=== PATIENT | male | born 1940 | race Caucasian/White ===

== ENCOUNTER → 2020-10-31 | Outpatient (CLI) | payer OTHER ==
[~2020-10-31] MED LIST: ALBUTEROL0.63 MG/3 INH; ALBUTEROL2.5 MG/3 M INH; ATORVASTATIN CA80 MG PO; CARBIDOPA-LEVO1 EA14 PO; CARDURA 2MG TAB2 MG PO; CATAPRES 0.1MG0.1 MG PO; CLOPIDOGREL75 MG PO; DILTIAZEM 24HR120 M1 PO; DILTIAZEM 24HR180 M1 PO; DILTIAZEM 24HR240 M1 PO; DOXYCYCLINE HY100 M2 PO; ECOTRIN81 MG PO; GABAPENTIN600 MG PO; GLUCOPHAGE500 MG PO; HIGH POTENCY I134 MG PO; HYDRALAZINE HCL50 MG PO; HYDROCHLOROTHIA25 MG PO; HYGROTON TAB 2525 MG PO; IMDUR ER TAB 3030 MG PO; K-DUR TAB 10 M10 MEQ PO; LASIX20 MG PO; NORCO 10-325 T1 EACH PO; POTASSIUM CHLO10 ME1 PO; PROTONIX40 MG PO; SLOW RELEASE I142 MG PO; SYNTHROID100 MCG PO; ZESTRIL40 MG PO; ZYLOPRIM 300 M300 MG PO
== END ==
LOC: KOH-I 13:30
DX: D64.9 Anemia, unspecified (principal); K90.9 Intestinal malabsorption, unspecified; D50.8 Other iron deficiency anemias; R59.9 Enlarged lymph nodes, unspecified; R93.5 Abnormal findings on diagnostic imaging of other abdominal regions, including retroperitoneum
CPT/HCPCS: 74150

== ENCOUNTER 2020-11-20 03:31 | Emergency (ER) | payer OTHER ==
[~2020-11-20 03:31] MED LIST changes: -DOXYCYCLINE HY100 M2 PO; -HIGH POTENCY I134 MG PO; -LASIX20 MG PO
[2020-11-20 04:12] LABS: HEMOGLOBIN 9.4 gm/dl (14.0-17.5); RED BLOOD COUNT 3.2 M/UL (4.20-5.50); WHITE BLOOD COUNT 5.4 K/UL (4.5-11.0)
[2020-11-20 09:04] LABS: BUN/CREATININE RATIO 19 (0-10)
== END 2020-11-20 09:23 | disposition home or self-care (01) ==
LOC: ER1 03:31
PROVIDERS: Emergency Medicine
DX: R07.9 Chest pain, unspecified (principal); E11.9 Type 2 diabetes mellitus without complications; I10 Essential (primary) hypertension; I48.91 Unspecified atrial fibrillation; J44.9 Chronic obstructive pulmonary disease, unspecified; Z91.041 Radiographic dye allergy status; Z88.8 Allergy status to other drugs, medicaments and biological substances; Z53.20 Procedure and treatment not carried out because of patient's decision for unspecified reasons
CPT/HCPCS: 71045; 80053; 81001; 82550; 82553; 83874; 84484; 85025; 85379; 85610; 85730; 93005; 99285

== ENCOUNTER 2021-02-04 14:32 | Inpatient (IN) | payer OTHER ==
[~2021-02-04] VITALS: Ht 177.8 cm; Wt 85.8 kg
[2021-02-04 16:19] LABS: RED BLOOD COUNT 2.28 M/UL (4.20-5.50); WHITE BLOOD COUNT 6.4 K/UL (4.5-11.0)
[2021-02-04 16:25] LABS: HEMOGLOBIN 6.6 gm/dl (14.0-17.5)
[2021-02-05 06:06] LABS: HEMOGLOBIN 8.4 gm/dl (14.0-17.5)
[2021-02-05 06:08] LABS: RED BLOOD COUNT 2.9 M/UL (4.20-5.50); WHITE BLOOD COUNT 4.2 K/UL (4.5-11.0)
[2021-02-06 03:06] LABS: HEMOGLOBIN 8.4 gm/dl (14.0-17.5); RED BLOOD COUNT 2.93 M/UL (4.20-5.50)
[2021-02-06 03:25] LABS: WHITE BLOOD COUNT 8.5 K/UL (4.5-11.0)
[2021-02-06 08:55] LABS: BUN/CREATININE RATIO 23 (0-10)
[2021-02-07 03:38] LABS: HEMOGLOBIN 8.6 gm/dl (14.0-17.5); RED BLOOD COUNT 3.05 M/UL (4.20-5.50)
[2021-02-07 03:44] LABS: WHITE BLOOD COUNT 5.7 K/UL (4.5-11.0)
[2021-02-07 04:20] LABS: BUN/CREATININE RATIO 17 (0-10)
[2021-02-08 08:02] LABS: HEMOGLOBIN 9.3 gm/dl (14.0-17.5); RED BLOOD COUNT 3.26 M/UL (4.20-5.50); WHITE BLOOD COUNT 6.1 K/UL (4.5-11.0)
[2021-02-08 08:23] LABS: BUN/CREATININE RATIO 14 (0-10)
[2021-02-08] MEDS ORDERED: DOXYCYCLINE HY100 M2 PO (12:09)
[2021-02-08] MEDS ORDERED: LASIX20 MG PO (12:09)
[2021-02-08] MEDS ORDERED: HIGH POTENCY I134 MG PO (12:09)
[2021-02-10 15:11] LABS: A/G RATIO 1.1 (0.7-1.7); ALBUMIN 3.4 g/dL (2.9-4.4); ALPHA-1-GLOBULIN 0.5 g/dL (0.0-0.4); ALPHA-2-GLOBULIN 1.1 g/dL (0.4-1.0); BETA GLOBULIN 0.7 g/dL (0.7-1.3); GAMMA GLOBULIN 0.9 g/dL (0.4-1.8); GLOBULIN, TOTAL 3.2 g/dL (2.2-3.9); IMMUNOGLOBULIN A, QN, SERUM 84 mg/dL (61-437); IMMUNOGLOBULIN G, QN, SERUM 509 mg/dL (603-1613); IMMUNOGLOBULIN M, QN, SERUM 416 mg/dL (15-143); M-SPIKE 0.3 g/dL (Not Observed); PROTEIN, TOTAL, SERUM 6.6 g/dL (6.0-8.5)
== END 2021-02-08 13:01 | disposition home or self-care (01) | DRG 871 ==
LOC: ER1 14:32 → CDU 17:11 → M/S 17:11
PROVIDERS: Emergency Medicine; Internal Medicine; Internal Medicine Gastroenterology; Registered Nurse; ADMIT Internal Medicine
PROC: 30233N1 Transfusion of Nonautologous Red Blood Cells into Peripheral Vein, Percutaneous Approach (ICD-10-PCS; principal; 2021-02-04)
PROC: 0DJ08ZZ Inspection of Upper Intestinal Tract, Via Natural or Artificial Opening Endoscopic (ICD-10-PCS; 2021-02-07 12:00)
DX: A41.9 Sepsis, unspecified organism (principal); J18.9 Pneumonia, unspecified organism; I50.33 Acute on chronic diastolic (congestive) heart failure; J96.01 Acute respiratory failure with hypoxia; J44.0 Chronic obstructive pulmonary disease with (acute) lower respiratory infection; I13.0 Hypertensive heart and chronic kidney disease with heart failure and stage 1 through stage 4 chronic kidney disease, or unspecified chronic kidney disease; D50.9 Iron deficiency anemia, unspecified; R59.1 Generalized enlarged lymph nodes; E78.5 Hyperlipidemia, unspecified; I25.10 Atherosclerotic heart disease of native coronary artery without angina pectoris; G20 Parkinson's disease; Z99.81 Dependence on supplemental oxygen; Z87.891 Personal history of nicotine dependence; Z95.5 Presence of coronary angioplasty implant and graft; K59.09 Other constipation; N18.30 Chronic kidney disease, stage 3 unspecified; E11.22 Type 2 diabetes mellitus with diabetic chronic kidney disease; D63.1 Anemia in chronic kidney disease; Z20.822 Contact with and (suspected) exposure to COVID-19
CPT/HCPCS: ECHO; 36415; 36430; 36600; 70450; 71045; 80048; 80053; 82140; 82272; 82550; 82553; 82784; 82803; 82962; 83540; 83550; 83605; 83690; 83735; 83874; 83880; 83883; 84100; 84155; 84165; 84439; 84443; 84484; 85025; 85027; 85610; 85730; 86140; 86334; 86738; 86850; 86900; 86901; 86920; 87040; 93005; 93306; 94640; 94664; 94760; 96374; 96375; 99285; C9113; J0456; J0696; J1756; J1940; J2704; J2930; J3480; J7030; J7050; J7070; P9016; U0002

== ENCOUNTER 2021-05-02 15:36 | Emergency (ER) | payer OTHER ==
[~2021-05-02 15:36] MED LIST changes: +DOXYCYCLINE HY100 M2 PO; +HIGH POTENCY I134 MG PO; +LASIX20 MG PO
[2021-05-02 16:25] LABS: HEMOGLOBIN 10.4 gm/dl (14.0-17.5); RED BLOOD COUNT 3.43 M/UL (4.20-5.50); WHITE BLOOD COUNT 5.3 K/UL (4.5-11.0)
== END 2021-05-02 19:10 | disposition home or self-care (01) ==
LOC: ER1 15:36
PROVIDERS: Physician Assistant Medical
DX: I13.0 Hypertensive heart and chronic kidney disease with heart failure and stage 1 through stage 4 chronic kidney disease, or unspecified chronic kidney disease (principal); I50.9 Heart failure, unspecified; J44.9 Chronic obstructive pulmonary disease, unspecified; N18.9 Chronic kidney disease, unspecified; Z91.041 Radiographic dye allergy status
CPT/HCPCS: 71045; 80053; 82550; 82553; 83874; 83880; 84439; 84443; 84484; 85025; 85610; 93005; 96374; 99285

== ENCOUNTER → 2021-05-21 | Outpatient (CLI) | payer OTHER | LOC: HEART 5 11:00 | DX: I48.91 Unspecified atrial fibrillation (principal) ==

== ENCOUNTER → 2021-06-11 | Outpatient (CLI) | payer OTHER | LOC: CT 08:07 | DX: K90.9 Intestinal malabsorption, unspecified (principal); D50.8 Other iron deficiency anemias; N18.9 Chronic kidney disease, unspecified; D63.1 Anemia in chronic kidney disease; R59.0 Localized enlarged lymph nodes; J90 Pleural effusion, not elsewhere classified; D35.01 Benign neoplasm of right adrenal gland | CPT/HCPCS: 71250 ==

== ENCOUNTER → 2021-08-13 | Outpatient (CLI) | payer OTHER | LOC: EXRD 14:11 | DX: R09.89 Other specified symptoms and signs involving the circulatory and respiratory systems (principal) | CPT/HCPCS: 93880 ==

== ENCOUNTER → 2021-08-13 | Outpatient (CLI) | payer OTHER ==
[2021-08-13 12:36] LABS: HEMOGLOBIN 8.7 gm/dl (14.0-17.5); RED BLOOD COUNT 3.09 M/UL (4.20-5.50)
== END ==
LOC: LAB 12:02
PROVIDERS: Internal Medicine Cardiovascular Disease
DX: I48.92 Unspecified atrial flutter (principal); I10 Essential (primary) hypertension
CPT/HCPCS: 36415; 71046; 80048; 85025

== ENCOUNTER → 2021-09-23 | Outpatient (CLI) | payer OTHER ==
[~2021-09-23] MED LIST changes: +ALLOPURINOL300 MG PO; +ATORVASTATIN CA40 MG PO; +CARBIDOPA-LEVO1 EAC3 PO; +CEPHALEXIN500 M1 PO; +CLARITIN10 M2 PO; +CLONIDINE HCL0.3 MG PO; +DILTIAZEM 12HR120 MG PO; +DOXAZOSIN MESYLA2 MG PO; +ELIQUIS5 MG PO; +HYDRALAZINE HC100 MG PO; +HYDROCODON-ACE1 EAC6 PO; +IRON INFUSIONS IV; +ISOSORBIDE MONO30 MG PO; +JANUVIA50 MG PO; +LEVOTHYROXINE100 MC2 PO; +LOSARTAN POTASS25 MG PO; +METFORMIN HCL500 MG PO; +NITROSTAT0.4 MG SL; +PANTOPRAZOLE SO20 MG PO; +PLAVIX75 MG PO; +POTASSIUM CHLO20 ME1 PO; +PROVENTIL HFA6.7 GM INH; +VITAMIN C 500500 MG PO
== END ==
LOC: CT 09-15 13:00
DX: I65.23 Occlusion and stenosis of bilateral carotid arteries (principal); R09.89 Other specified symptoms and signs involving the circulatory and respiratory systems; R55 Syncope and collapse; J90 Pleural effusion, not elsewhere classified; I25.10 Atherosclerotic heart disease of native coronary artery without angina pectoris
CPT/HCPCS: 70498; Q9967

== ENCOUNTER → 2021-10-01 | Outpatient (CLI) | payer OTHER | LOC: HEART 5 15:00 | DX: R60.0 Localized edema (principal); M54.50 Low back pain, unspecified ==

== ENCOUNTER 2021-10-28 17:26 | Inpatient (IN) | payer OTHER ==
[~2021-10-28] VITALS: Ht 172.7 cm; Wt 85.7 kg
[~2021-10-28 17:26] MED LIST changes: -CARBIDOPA-LEVO1 EAC3 PO
[2021-10-28 19:20] LABS: WHITE BLOOD COUNT 5.8 K/UL (4.5-11.0)
[2021-10-29] MEDS ORDERED: LONITEN TAB 1010 MG PO (03:41)
[2021-10-29] MEDS ORDERED: CARBIDOPA-LEVO1 EA14 PO (11:07)
[2021-10-30 07:17] LABS: HEMOGLOBIN 7.6 gm/dl (14.0-17.5); RED BLOOD COUNT 2.85 M/UL (4.20-5.50)
[2021-10-30 07:36] LABS: WHITE BLOOD COUNT 4.3 K/UL (4.5-11.0)
[2021-11-01 04:22] LABS: HEMOGLOBIN 7.2 gm/dl (14.0-17.5); RED BLOOD COUNT 2.76 M/UL (4.20-5.50)
[2021-11-01 04:33] LABS: WHITE BLOOD COUNT 5.6 K/UL (4.5-11.0)
[2021-11-02 03:26] LABS: HEMOGLOBIN 7.3 gm/dl (14.0-17.5); RED BLOOD COUNT 2.89 M/UL (4.20-5.50); WHITE BLOOD COUNT 4.5 K/UL (4.5-11.0)
[2021-11-03 04:24] LABS: RED BLOOD COUNT 2.77 M/UL (4.20-5.50); WHITE BLOOD COUNT 5.1 K/UL (4.5-11.0)
[2021-11-04 04:49] LABS: HEMOGLOBIN 7.1 gm/dl (14.0-17.5); RED BLOOD COUNT 2.68 M/UL (4.20-5.50); WHITE BLOOD COUNT 4.6 K/UL (4.5-11.0)
[2021-11-05 03:56] LABS: HEMOGLOBIN 7.4 gm/dl (14.0-17.5); RED BLOOD COUNT 2.8 M/UL (4.20-5.50); WHITE BLOOD COUNT 4.4 K/UL (4.5-11.0)
[2021-11-06 04:42] LABS: RED BLOOD COUNT 2.71 M/UL (4.20-5.50); WHITE BLOOD COUNT 4.6 K/UL (4.5-11.0)
[2021-11-06 04:47] LABS: HEMOGLOBIN 6.8 gm/dl (14.0-17.5)
[2021-11-06 09:13] LABS: CREATININE, URINE 59.6 mg/dL (Not Estab.)
[2021-11-06] MEDS ORDERED: ALDACTONE 25MG25 MG PO (13:58)
[2021-11-06] MEDS ORDERED: CEFUROXIME500 MG PO (14:18)
[2021-11-06 15:34] LABS: HEMOGLOBIN 8.9 gm/dl (14.0-17.5)
== END 2021-11-06 17:27 | disposition home or self-care (01) | DRG 193 ==
LOC: ER1 17:26 → MED SURG 4 10-29 02:58 → CDU 10-29 02:58 → PROG CARE 10-29 02:58 → 3 EAST 10-29 13:18 → MED SURG 4 10-29 19:05 → PROG CARE 10-31 19:58
PROVIDERS: Internal Medicine; Physician Assistant; Registered Nurse; ADMIT Internal Medicine
PROC: B24BZZ4 Ultrasonography of Heart with Aorta, Transesophageal (ICD-10-PCS; 2021-11-03)
PROC: 30233N1 Transfusion of Nonautologous Red Blood Cells into Peripheral Vein, Percutaneous Approach (ICD-10-PCS; principal; 2021-11-06)
DX: J15.9 Unspecified bacterial pneumonia (principal); I50.33 Acute on chronic diastolic (congestive) heart failure; J96.21 Acute and chronic respiratory failure with hypoxia; Z20.822 Contact with and (suspected) exposure to COVID-19; I13.0 Hypertensive heart and chronic kidney disease with heart failure and stage 1 through stage 4 chronic kidney disease, or unspecified chronic kidney disease; N17.9 Acute kidney failure, unspecified; J44.1 Chronic obstructive pulmonary disease with (acute) exacerbation; D63.1 Anemia in chronic kidney disease; D50.9 Iron deficiency anemia, unspecified; G20 Parkinson's disease; K21.9 Gastro-esophageal reflux disease without esophagitis; N18.31 Chronic kidney disease, stage 3a; M10.9 Gout, unspecified; E11.22 Type 2 diabetes mellitus with diabetic chronic kidney disease; I16.0 Hypertensive urgency; I45.10 Unspecified right bundle-branch block; E78.5 Hyperlipidemia, unspecified; I25.10 Atherosclerotic heart disease of native coronary artery without angina pectoris; E11.51 Type 2 diabetes mellitus with diabetic peripheral angiopathy without gangrene; D47.2 Monoclonal gammopathy; I48.91 Unspecified atrial fibrillation; Z79.01 Long term (current) use of anticoagulants; Z79.82 Long term (current) use of aspirin; Z95.5 Presence of coronary angioplasty implant and graft; Z88.8 Allergy status to other drugs, medicaments and biological substances; Z91.041 Radiographic dye allergy status; Z79.4 Long term (current) use of insulin; Z87.891 Personal history of nicotine dependence; Z99.81 Dependence on supplemental oxygen; Z85.828 Personal history of other malignant neoplasm of skin; Z80.1 Family history of malignant neoplasm of trachea, bronchus and lung; Z80.51 Family history of malignant neoplasm of kidney; Z83.3 Family history of diabetes mellitus
CPT/HCPCS: ECHO; 36415; 71045; 80048; 80053; 80202; 82043; 82550; 82553; 82570; 82728; 82962; 83540; 83550; 83874; 83880; 84156; 84484; 85014; 85018; 85025; 86140; 86850; 86900; 86901; 86920; 87070; 87081; 87205; 93005; 93306; 93925; 94640; 94664; 94760; 96374; 97110; 97110-GP-CQ; 97116; 97161; 99285; J0692; J1756; J2270; J3370; J7070; P9016; Q5106; U0002

== ENCOUNTER 2021-11-11 12:10 | Inpatient (IN) | payer OTHER ==
[~2021-11-11] VITALS: Ht 172.7 cm; Wt 85.8 kg
[~2021-11-11 12:10] MED LIST changes: +ALBUTEROL2.5 MG/3 M NEB; +ALDACTONE 25MG25 MG PO; +CEFUROXIME500 MG PO; +LONITEN TAB 1010 MG PO
[2021-11-11 13:34] LABS: HEMOGLOBIN 9.8 gm/dl (14.0-17.5); RED BLOOD COUNT 3.57 M/UL (4.20-5.50); WHITE BLOOD COUNT 4.7 K/UL (4.5-11.0)
[2021-11-12 04:36] LABS: HEMOGLOBIN 8.8 gm/dl (14.0-17.5); RED BLOOD COUNT 3.33 M/UL (4.20-5.50); WHITE BLOOD COUNT 3.7 K/UL (4.5-11.0)
[2021-11-12 04:56] LABS: BUN/CREATININE RATIO 12 (0-10)
[2021-11-13 05:46] LABS: HEMOGLOBIN 8.9 gm/dl (14.0-17.5); RED BLOOD COUNT 3.35 M/UL (4.20-5.50)
[2021-11-13] MEDS ORDERED: GABAPENTIN600 MG PO (15:16)
[2021-11-13] MEDS ORDERED: SPIRONOLACTONE25 MG PO (15:16)
[2021-11-13] MEDS ORDERED: LEVALBUTER1.25 MG/0. NEB (15:17)
[2021-11-13] MEDS ORDERED: CARBIDOPA-LEVO1 EA14 PO (15:18)
[2021-11-13] MEDS ORDERED: ISOSORBIDE MONO30 MG PO (15:19)
[2021-11-13] MEDS ORDERED: METFORMIN HCL500 MG PO (15:19)
[2021-11-13] MEDS ORDERED: PLAVIX 75 MG TA75 MG PO (15:19)
[2021-11-15 04:11] LABS: HEMOGLOBIN 9.4 gm/dl (14.0-17.5); RED BLOOD COUNT 3.5 M/UL (4.20-5.50); WHITE BLOOD COUNT 3.7 K/UL (4.5-11.0)
[2021-11-15 04:27] LABS: BUN/CREATININE RATIO 13 (0-10)
[2021-11-16] MEDS ORDERED: BUMETANIDE2 MG PO (13:15)
[2021-11-16] MEDS ORDERED: FERROUS GLUCON324 M1 PO (13:15)
== END 2021-11-16 14:04 | disposition home health service (06) | DRG 291 ==
LOC: ER1 12:10 → MED SURG 4 17:49 → CDU 17:49 → MED SURG 4 19:38
PROVIDERS: Emergency Medicine; Internal Medicine Nephrology; Physician Assistant; ADMIT Internal Medicine Infectious Disease
DX: I13.0 Hypertensive heart and chronic kidney disease with heart failure and stage 1 through stage 4 chronic kidney disease, or unspecified chronic kidney disease (principal); I50.33 Acute on chronic diastolic (congestive) heart failure; J96.21 Acute and chronic respiratory failure with hypoxia; N17.9 Acute kidney failure, unspecified; I45.2 Bifascicular block; N04.9 Nephrotic syndrome with unspecified morphologic changes; Z20.822 Contact with and (suspected) exposure to COVID-19; D50.9 Iron deficiency anemia, unspecified; D63.1 Anemia in chronic kidney disease; E11.22 Type 2 diabetes mellitus with diabetic chronic kidney disease; E03.9 Hypothyroidism, unspecified; G20 Parkinson's disease; I27.20 Pulmonary hypertension, unspecified; J44.9 Chronic obstructive pulmonary disease, unspecified; I48.0 Paroxysmal atrial fibrillation; K21.9 Gastro-esophageal reflux disease without esophagitis; I25.10 Atherosclerotic heart disease of native coronary artery without angina pectoris; R00.1 Bradycardia, unspecified; N18.32 Chronic kidney disease, stage 3b; Z95.1 Presence of aortocoronary bypass graft; Z98.890 Other specified postprocedural states; Z79.899 Other long term (current) drug therapy; Z87.891 Personal history of nicotine dependence; Z83.3 Family history of diabetes mellitus; Z99.81 Dependence on supplemental oxygen; Z85.828 Personal history of other malignant neoplasm of skin; Z91.041 Radiographic dye allergy status
CPT/HCPCS: 0240U; 36415; 71045; 71046; 80048; 80053; 81001; 82550; 82553; 82728; 82803; 82962; 83540; 83550; 83605; 83880; 84439; 84443; 84484; 85025; 87040; 87086; 93005; 94640; 94760; 96372; 96374; 96376; 97116-GP-CQ; 97161; 99285; G0378; J1650; J1756; J1940; J7030

== ENCOUNTER → 2021-11-24 | Outpatient (CLI) | payer OTHER ==
[~2021-11-24] MED LIST changes: +BUMETANIDE2 MG PO; +FERROUS GLUCON324 M1 PO; +LEVALBUTER1.25 MG/0. NEB; +PLAVIX 75 MG TA75 MG PO; +SPIRONOLACTONE25 MG PO
== END ==
LOC: LAB 11:53
PROVIDERS: Internal Medicine Infectious Disease
DX: N18.30 Chronic kidney disease, stage 3 unspecified (principal)
CPT/HCPCS: 36415; 80048

== ENCOUNTER → 2021-12-03 | Outpatient (CLI) | payer OTHER ==
[2021-12-04 07:11] LABS: A/G RATIO 1.2 (1.2-2.2); BILIRUBIN, TOTAL 0.4 mg/dL (0.0-1.2); CALCIUM, SERUM 9.6 mg/dL (8.6-10.2); CREATININE, SERUM 1.76 mg/dL (0.76-1.27); GLOBULIN, TOTAL 3.3 g/dL (1.5-4.5); POTASSIUM, SERUM 4.9 mmol/L (3.5-5.2); PROTEIN, TOTAL, SERUM 7.2 g/dL (6.0-8.5)
[2021-12-04 08:15] LABS: MAGNESIUM 2.1 mg/dL (1.6-2.3)
== END ==
LOC: US 14:00
PROVIDERS: Internal Medicine Nephrology
DX: N18.31 Chronic kidney disease, stage 3a (principal); E87.6 Hypokalemia; J90 Pleural effusion, not elsewhere classified; N28.1 Cyst of kidney, acquired
CPT/HCPCS: 36415; 80053; 82570; 83735; 84156

== ENCOUNTER 2021-12-09 13:57 | Inpatient (IN) | payer OTHER, MEDICAID ==
[~2021-12-09] VITALS: Ht 172.7 cm; Wt 79.5 kg
[~2021-12-09 13:57] MED LIST changes: -LEVOTHYROXINE100 MC2 PO; +LEVOTHYROXINE100 MCG PO
[2021-12-09 15:54] LABS: HEMOGLOBIN 10.2 gm/dl (14.0-17.5); RED BLOOD COUNT 3.7 M/UL (4.20-5.50); WHITE BLOOD COUNT 3.5 K/UL (4.5-11.0)
[2021-12-10 04:28] LABS: HEMOGLOBIN 9.4 gm/dl (14.0-17.5); RED BLOOD COUNT 3.42 M/UL (4.20-5.50); WHITE BLOOD COUNT 2.7 K/UL (4.5-11.0)
[2021-12-10 04:57] LABS: BUN/CREATININE RATIO 13 (0-10)
[2021-12-10] MEDS ORDERED: GABAPENTIN600 MG PO (10:19)
[2021-12-10] MEDS ORDERED: ALLOPURINOL300 MG PO (10:20)
[2021-12-10] MEDS ORDERED: DILTIAZEM HCL120 MG PO (10:21)
[2021-12-10] MEDS ORDERED: STOOL SOFTENER100 M1 PO (10:22)
[2021-12-11 03:31] LABS: HEMOGLOBIN 9.3 gm/dl (14.0-17.5); RED BLOOD COUNT 3.31 M/UL (4.20-5.50)
[2021-12-11 03:41] LABS: WHITE BLOOD COUNT 4.8 K/UL (4.5-11.0)
[2021-12-12 06:44] LABS: HEMOGLOBIN 9.3 gm/dl (14.0-17.5); RED BLOOD COUNT 3.34 M/UL (4.20-5.50); WHITE BLOOD COUNT 4.4 K/UL (4.5-11.0)
[2021-12-12] MEDS ORDERED: CATAPRES 0.1MG0.1 MG PO (11:40)
[2021-12-12] MEDS ORDERED: CARDIZEM SR 90M90 MG PO (11:40)
[2021-12-12] MEDS ORDERED: BUMETANIDE1 MG PO (11:40)
[2021-12-12] MEDS ORDERED: DOXYCYCLINE HY100 M2 PO (12:04)
[2021-12-12] MEDS ORDERED: OMNICEF 300 MG300 MG PO (12:04)
[2021-12-12] MEDS ORDERED: HYDRALAZINE HCL25 MG PO (12:04)
[2021-12-12] MEDS ORDERED: BUMETANIDE2 MG PO (12:04)
[2021-12-12] MEDS ORDERED: ASPIRIN EC81 MG PO (12:12)
[2021-12-12] MEDS ORDERED: K-TAB ER20 MEQ PO (12:12)
[2021-12-12] MEDS ORDERED: MEDROL DOSEPAK 24 MG PO (19:17)
== END 2021-12-12 15:04 | disposition home health service (06) | DRG 193 ==
LOC: ER1 13:57 → CDU 17:43 → MED SURG 4 17:43 → CDU 17:43 → MED SURG 4 17:43
PROVIDERS: Physician Assistant; Physician Assistant Medical; ADMIT Internal Medicine
DX: J18.9 Pneumonia, unspecified organism (principal); I50.33 Acute on chronic diastolic (congestive) heart failure; I13.0 Hypertensive heart and chronic kidney disease with heart failure and stage 1 through stage 4 chronic kidney disease, or unspecified chronic kidney disease; J44.0 Chronic obstructive pulmonary disease with (acute) lower respiratory infection; J96.11 Chronic respiratory failure with hypoxia; N17.9 Acute kidney failure, unspecified; I48.92 Unspecified atrial flutter; J98.11 Atelectasis; I44.0 Atrioventricular block, first degree; Z20.822 Contact with and (suspected) exposure to COVID-19; N18.30 Chronic kidney disease, stage 3 unspecified; E11.22 Type 2 diabetes mellitus with diabetic chronic kidney disease; E03.9 Hypothyroidism, unspecified; I27.20 Pulmonary hypertension, unspecified; G25.0 Essential tremor; I65.21 Occlusion and stenosis of right carotid artery; I25.10 Atherosclerotic heart disease of native coronary artery without angina pectoris; I48.0 Paroxysmal atrial fibrillation; R00.1 Bradycardia, unspecified; D63.1 Anemia in chronic kidney disease; Z99.81 Dependence on supplemental oxygen; Z95.1 Presence of aortocoronary bypass graft; Z98.890 Other specified postprocedural states; Z88.8 Allergy status to other drugs, medicaments and biological substances; Z91.041 Radiographic dye allergy status; Z87.891 Personal history of nicotine dependence; Z80.1 Family history of malignant neoplasm of trachea, bronchus and lung; Z83.3 Family history of diabetes mellitus; Z80.51 Family history of malignant neoplasm of kidney; Z79.899 Other long term (current) drug therapy; Z79.82 Long term (current) use of aspirin; Z79.4 Long term (current) use of insulin
CPT/HCPCS: 36415; 36600; 71045; 80053; 82550; 82553; 82803; 82962; 83605; 83735; 83874; 83880; 84439; 84443; 84484; 85025; 85027; 85610; 87040; 93005; 94640; 94664; 94760; 96372; 96374; 96375; 96376; 99285; G0378; J0692; J1644; J2185; J2930; J3370; U0002

== ENCOUNTER 2021-12-21 18:13 | Inpatient (IN) | payer OTHER ==
[~2021-12-21] VITALS: Ht 172.7 cm; Wt 86.7 kg
[~2021-12-21 18:13] MED LIST changes: +ASPIRIN EC81 MG PO; +BUMETANIDE1 MG PO; +CARDIZEM SR 90M90 MG PO; +DILTIAZEM HCL120 MG PO; -DOXAZOSIN MESYLA2 MG PO; +HYDRALAZINE HCL25 MG PO; +K-TAB ER20 MEQ PO; +MEDROL DOSEPAK 24 MG PO; +OMNICEF 300 MG300 MG PO; +STOOL SOFTENER100 M1 PO
[2021-12-21 20:06] LABS: HEMOGLOBIN 8.8 gm/dl (14.0-17.5); RED BLOOD COUNT 3.07 M/UL (4.20-5.50); WHITE BLOOD COUNT 8.3 K/UL (4.5-11.0)
[2021-12-22 06:45] LABS: HEMOGLOBIN 8.8 gm/dl (14.0-17.5); RED BLOOD COUNT 3.08 M/UL (4.20-5.50); WHITE BLOOD COUNT 9.1 K/UL (4.5-11.0)
[2021-12-22] MEDS ORDERED: CLONIDINE HCL0.1 MG PO (08:56)
[2021-12-22] MEDS ORDERED: CARDIZEM 90MG T90 MG PO (08:57)
[2021-12-22] MEDS ORDERED: FERROUS SULFAT325 MG PO (08:58)
[2021-12-22] MEDS ORDERED: HYDROXYZINE PAM25 MG PO (09:02)
[2021-12-22] MEDS ORDERED: PREDNISONE10 MG PO (09:04)
[2021-12-22] MEDS ORDERED: DOXAZOSIN MESYLA2 MG PO (11:10)
[2021-12-23 03:54] LABS: HEMOGLOBIN 8.2 gm/dl (14.0-17.5); RED BLOOD COUNT 2.92 M/UL (4.20-5.50); WHITE BLOOD COUNT 8.3 K/UL (4.5-11.0)
[2021-12-24 01:55] LABS: HEMOGLOBIN 8.2 gm/dl (14.0-17.5); RED BLOOD COUNT 2.84 M/UL (4.20-5.50); WHITE BLOOD COUNT 6.4 K/UL (4.5-11.0)
[2021-12-24] MEDS ORDERED: HYDRALAZINE HCL25 MG PO (08:10)
[2021-12-24] MEDS ORDERED: BUMETANIDE1 MG PO (08:10)
[2021-12-24] MEDS ORDERED: LOPRESSOR 25 MG25 MG PO (08:10)
== END 2021-12-24 10:56 | disposition home health service (06) | DRG 291 ==
LOC: ER1 18:13 → PROG CARE 21:18 → CDU 21:18 → PROG CARE 12-22 01:01
PROVIDERS: Family Medicine; Internal Medicine; ADMIT Internal Medicine
DX: I13.0 Hypertensive heart and chronic kidney disease with heart failure and stage 1 through stage 4 chronic kidney disease, or unspecified chronic kidney disease (principal); I50.33 Acute on chronic diastolic (congestive) heart failure; Z20.822 Contact with and (suspected) exposure to COVID-19; J96.21 Acute and chronic respiratory failure with hypoxia; I45.2 Bifascicular block; N17.9 Acute kidney failure, unspecified; E11.22 Type 2 diabetes mellitus with diabetic chronic kidney disease; E78.5 Hyperlipidemia, unspecified; N18.30 Chronic kidney disease, stage 3 unspecified; J44.9 Chronic obstructive pulmonary disease, unspecified; I48.0 Paroxysmal atrial fibrillation; D63.1 Anemia in chronic kidney disease; I08.1 Rheumatic disorders of both mitral and tricuspid valves; I25.10 Atherosclerotic heart disease of native coronary artery without angina pectoris; I16.0 Hypertensive urgency; E03.9 Hypothyroidism, unspecified; E11.65 Type 2 diabetes mellitus with hyperglycemia; I27.20 Pulmonary hypertension, unspecified; G20 Parkinson's disease; Z79.01 Long term (current) use of anticoagulants; Z79.82 Long term (current) use of aspirin; Z79.4 Long term (current) use of insulin; Z98.890 Other specified postprocedural states; Z99.81 Dependence on supplemental oxygen; Z95.5 Presence of coronary angioplasty implant and graft; Z88.8 Allergy status to other drugs, medicaments and biological substances; Z91.041 Radiographic dye allergy status; Z87.891 Personal history of nicotine dependence; Z80.1 Family history of malignant neoplasm of trachea, bronchus and lung; Z80.51 Family history of malignant neoplasm of kidney; Z83.3 Family history of diabetes mellitus
CPT/HCPCS: 36415; 71045; 76705; 80048; 80053; 82550; 82553; 82962; 83605; 83735; 83880; 84484; 85025; 85027; 85610; 93005; 94010; 94640; 94664; 94760; G0378; J0360; J1205; J1644; Q0177; U0002